=== PATIENT | male | born 1960 | race Caucasian/White ===

== ENCOUNTER 2017-06-01 07:15 | Inpatient (IN) | payer BC ==
[2017-06-01] MEDS ORDERED: Sodium Chloride 0.9% 2.5 ML Syringe FLUSH PRN (07:23)
[2017-06-01] MEDS ORDERED: Sodium Chloride 0.9% 10 ML Syringe FLUSH PRN (07:23)
--- NOTE | 2017-06-01 07:28 | EDM.PDOC ---
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 According to the patient he staying at a hotel alone and when he woke up this morning he felt generalized weakness no focal weakness. He Had a completely normal day yesterday without any systemic complaints of fever chills chest pain headache nausea vomiting. When he woke this morning he did not have a headache or any pain throughout his body but felt like he had this generalized weakness like he might pass out. He called the ambulance and when they arrived they tell us that he initially did not have a slight facial droop on the left and now it is more pronounced. The patient did not notice that prior to transfer here. Currently in the ED has no complaints of any pain but just feels weak but is not nauseated he doesn't have a headache chest pain palpitations shortness of breath nausea or any focal weakness. Review of systems: As per history of present illness and below otherwise all systems reviewed and negative. Past medical history: As per history of present illness and as reviewed below otherwise noncontributory. Surgical history: As per history of present illness and as reviewed below otherwise noncontributory. Social history: No reported history of drug or alcohol abuse. Family history: As per history of present illness and as reviewed below otherwise noncontributory. Physical exam: General: Well-developed well-nourished overweight man who is nontoxic and vital signs of the note by me. He moves easily in the ED without distress HEENT: Atraumatic, normocephalic, pupils reactive, negative for conjunctival pallor or scleral icterus, mucous membranes moist, throat clear, neck supple, nontender, trachea midline. EOMs intact, no cervical adenopathy or nuchal rigidity, there is a slight downward turn of his mouth on the left and loss of nasolabial fold on the left. Lungs: Clear to auscultation, breath sounds equal bilaterally, chest nontender. Heart: S1S2, regular rate and rhythm no overt murmurs Abdomen: Soft, nondistended, nontender. Negative for masses or hepatosplenomegaly. Negative for costovertebral tenderness. Pelvis: Stable nontender. Genitourinary: Deferred. Rectal: Deferred. Extremities: Atraumatic, negative for cords or calf pain. Neurovascular unremarkable. Full range of motion without defects or deficits Neuro: Awake, alert, oriented. Cranial nerves II through XII unremarkable. Cerebellum unremarkable. Motor and sensory unremarkable throughout. Exam nonfocal. 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 Patient's speech is slightly thickened and he has a downward turn of his smile on the left but is able to raise his eyebrows and puff out his cheeks. Skin: There is no diaphoresis, no evidence of any rashes or lesions, normal turgor Diagnostics: CT scan of the head EKG CBC CMP INR troponin TSH UA chest x-ray NIHSS [employer]: IV O2 monitor, aspirin if CT scan is negative NIHSS=2; patient states that he went to bed last evening at 10 PM and his symptoms were present when he woke of the generalized weakness lightheadedness. EMS as the facial droop started in route to the hospital as they state that they did not notice it on their arrival. Their call in to the ER or transfer occurred at approximately 655. When asked about the patient's TIA in the past he is unsure why that occurred he said it was right arm and right leg weakness not facial changes. He said it occurred in 2011. He has a defibrillator because he has an ejection fraction of only 10%. Currently his blood pressure from initial has stabilized to 150s systolic --- see nursing notes for blood pressure trends 0817: Case was discussed with our neurologist Dr. Alonzo who feels that the patient's symptoms started when he woke up and that his last had normal would' ve been when he went to bed at 10 PM. She agrees that with this timeframe and the stroke scale of 2 the TPA is not indicated. She agrees that the patient should be admitted for a workup and she will be available for consult if the hospitalist wants that. 0831: Dr. Valenzuela is aware of the case and accepts the patient for observation admission. He is aware that Dr. Alonzo is aware and if he would like a consult with her he could request that. Patient is also aware of the admission. Symptoms have not evolved developed or change since arrival. Impression: Generalized weakness without focality, left facial droop TIA versus CVA Definitive disposition and diagnosis as appropriate pending reevaluation and review of above. - Related Data Allergies Allergy/AdvReac Type Severity Reaction Status Date / Time No Known Allergies Allergy Verified 06/01/17 08:05 ED ROS GENERAL - Review of Systems Review Of Systems: ROS reveals no pertinent complaints other than HPI. ED EXAM, GENERAL - Physical Exam Exam: See Below (See dictation) Course - Vital Signs Last Recorded V/S: Last Vital Signs Temp 36.2 C 06/01/17 07:15 Pulse 73 06/01/17 07:15 Resp 18 06/01/17 07:15 BP 158/101 H 06/01/17 07:15 Pulse Ox 98 06/01/17 07:30 - Orders/Labs/Meds Orders: Active Orders 24 hr Category Date Time Status Blood Glucose Check, Bedside [RC] ONETIME Care 06/01/17 07:22 Active Cardiac Monitoring [RC] . DIRECTED Care 06/01/17 07:22 Active EKG Documentation Completion [RC] STAT Care 06/01/17 07:22 Active Oxygen Therapy, ED [RC] ASDIRECTED Care 06/01/17 07:22 Active Pulse Oximetry [RC] ASDIRECTED Care 06/01/17 07:22 Active Chest 1V Frontal [CR] Stat Exams 06/01/17 07:23 Taken Head wo Cont [CT] Stat Exams 06/01/17 07:22 Taken COMPREHENSIVE METABOLIC PN,CMP [CHEM] Stat Lab 06/01/17 07:39 Results TSH [CHEM] Stat Lab 06/01/17 07:39 Results UA W/MICROSCOPIC [URIN] Stat Lab 06/01/17 07:22 Uncollected Sodium Chloride 0.9% [Saline Flush] Med 06/01/17 07:23 Active 10 ml FLUSH ASDIRECTED PRN Sodium Chloride 0.9% [Saline Flush] Med 06/01/17 07:23 Active 2.5 ml FLUSH ASDIRECTED PRN Saline Lock Insert [OM.PC] Stat Oth 06/01/17 07:22 Ordered Medication Orders Sodium Chloride (Saline Flush) 10 ml FLUSH ASDIRECTED PRN PRN Reason: Keep Vein Open Sodium Chloride (Saline Flush) 2.5 ml FLUSH ASDIRECTED PRN PRN Reason: Keep Vein Open Labs: Laboratory Tests 06/01/17 06/01/17 06/01/17 Range/Units 07:39 07:39 07:39 WBC 8.51 (4.0-11.0) K/uL RBC 4.71 (4.50-5.90) M/uL Hgb 16.3 (13.0-17.0) g/dL Hct 46.5 (38.0-50.0) % MCV 98.7 H (80.0-98.0) fL MCH 34.6 H (27.0-32.0) pg MCHC 35.1 (31.0-37.0) g/dL RDW Std Deviation 46.0 (28.0-62.0) fl RDW Coeff of An 13 (11.0-15.0) % Plt Count 185 (150-400) K/uL MPV 11.00 (7.40-12.00) fL Neut % (Auto) 61.6 (48.0-80.0) % Lymph % (Auto) 27.7 (16.0-40.0) % [place] % (Auto) 8.1 (0.0-15.0) % Eos % (Auto) 2.4 (0.0-7.0) % Baso % (Auto) 0.2 (0.0-1.5) % Neut # (Auto) 5.2 (1.4-5.7) K/uL Lymph # (Auto) 2.4 (0.6-2.4) K/uL [place] # (Auto) 0.7 (0.0-0.8) K/uL Eos # (Auto) 0.2 (0.0-0.7) K/uL Baso # (Auto) 0.0 (0.0-0.1) K/uL Nucleated RBC % 0.0 /100WBC Nucleated RBCs # 0 K/uL INR 1.04 (0.86-1.11) Sodium 142 (136-146) mmol/L Potassium 3.9 (3.5-5.1) mmol/L Chloride 109 (98-110) mmol/L Carbon Dioxide 23 (21-31) mmol/L BUN 15 (6.0-23.0) mg/dL Creatinine 1.4 (0.6-1.5) mg/dL Est Cr Clr Drug Dosing 58.92 mL/min Estimated GFR (MDRD) 52.4 ml/min Glucose 138 H (60-110) mg/dL Calcium 9.2 (8.8-10.8) mg/dL Total Bilirubin 0.8 (0.1-1.5) mg/dL AST 36 (5-40) IU/L ALT 57 H (8-54) IU/L Alkaline Phosphatase 71 (40-150) Troponin I (0.0-0.29) NG/ML Total Protein 7.1 (6.0-8.0) g/dL Albumin 4.1 (3.5-5.0) g/dL Globulin 3.0 (2.0-3.5) g/dL Albumin/Globulin Ratio 1.4 (1.3-2.8) 06/01/17 Range/Units 07:39 WBC (4.0-11.0) K/uL RBC (4.50-5.90) M/uL Hgb (13.0-17.0) g/dL Hct (38.0-50.0) % MCV (80.0-98.0) fL MCH (27.0-32.0) pg MCHC (31.0-37.0) g/dL RDW Std Deviation (28.0-62.0) fl RDW Coeff of An (11.0-15.0) % Plt Count (150-400) K/uL MPV (7.40-12.00) fL Neut % (Auto) (48.0-80.0) % Lymph % (Auto) (16.0-40.0) % [place] % (Auto) (0.0-15.0) % Eos % (Auto) (0.0-7.0) % Baso % (Auto) (0.0-1.5) % Neut # (Auto) (1.4-5.7) K/uL Lymph # (Auto) (0.6-2.4) K/uL [place] # (Auto) (0.0-0.8) K/uL Eos # (Auto) (0.0-0.7) K/uL Baso # (Auto) (0.0-0.1) K/uL Nucleated RBC % /100WBC Nucleated RBCs # K/uL INR (0.86-1.11) Sodium (136-146) mmol/L Potassium (3.5-5.1) mmol/L Chloride (98-110) mmol/L Carbon Dioxide (21-31) mmol/L BUN (6.0-23.0) mg/dL Creatinine (0.6-1.5) mg/dL Est Cr Clr Drug Dosing mL/min Estimated GFR (MDRD) ml/min Glucose (60-110) mg/dL Calcium (8.8-10.8) mg/dL Total Bilirubin (0.1-1.5) mg/dL AST (5-40) IU/L ALT (8-54) IU/L Alkaline Phosphatase (40-150) Troponin I < 0.10 (0.0-0.29) NG/ML Total Protein (6.0-8.0) g/dL Albumin (3.5-5.0) g/dL Globulin (2.0-3.5) g/dL Albumin/Globulin Ratio (1.3-2.8) Meds: Medications Generic Name Dose Route Start Last Admin Trade Name Freq PRN Reason Stop Dose Admin Sodium Chloride 10 ml 06/01/17 07:23 Saline Flush FLUSH ASDIRECTED PRN Keep Vein Open Sodium Chloride 2.5 ml 06/01/17 07:23 Saline Flush FLUSH ASDIRECTED PRN Keep Vein Open Discontinued Medications Generic Name Dose Route Start Last Admin Trade Name Freq PRN Reason Stop Dose Admin Aspirin 325 mg 06/01/17 07:50 06/01/17 08:25 Aspirin PO 06/01/17 07:51 325 mg ONETIME ONE Administration Departure - Departure Time of Disposition: 08:34 Disposition: Refer to Observation Condition: Good Clinical Impression: Facial palsy TIA (transient ischemic attack) Qualifiers: Transient cerebral ischemia type: unspecified Qualified Code(s): G45.9 - Transient cerebral ischemic attack, unspecified - Discharge Information Referrals: PCP,None [Primary Care Provider] - - My Orders Last 24 Hours: My Active Orders 06/01/17 07:22 Blood Glucose Check, Bedside [RC] ONETIME Cardiac Monitoring [RC] . DIRECTED EKG Documentation Completion [RC] STAT Oxygen Therapy, ED [RC] ASDIRECTED Pulse Oximetry [RC] ASDIRECTED Head wo Cont [CT] Stat UA W/MICROSCOPIC [URIN] Stat Saline Lock Insert [OM.PC] Stat 06/01/17 07:23 Chest 1V Frontal [CR] Stat Sodium Chloride 0.9% [Saline Flush] 10 ml FLUSH ASDIRECTED PRN Sodium Chloride 0.9% [Saline Flush] 2.5 ml FLUSH ASDIRECTED PRN 06/01/17 07:39 COMPREHENSIVE METABOLIC PN,CMP [CHEM] Stat TSH [CHEM] Stat - Assessment/Plan Last 24 Hours: My Active Orders 06/01/17 07:22 Blood Glucose Check, Bedside [RC] ONETIME Cardiac Monitoring [RC] . DIRECTED EKG Documentation Completion [RC] STAT Oxygen Therapy, ED [RC] ASDIRECTED Pulse Oximetry [RC] ASDIRECTED Head wo Cont [CT] Stat UA W/MICROSCOPIC [URIN] Stat Saline Lock Insert [OM.PC] Stat 06/01/17 07:23 Chest 1V Frontal [CR] Stat Sodium Chloride 0.9% [Saline Flush] 10 ml FLUSH ASDIRECTED PRN Sodium Chloride 0.9% [Saline Flush] 2.5 ml FLUSH ASDIRECTED PRN 06/01/17 07:39 COMPREHENSIVE METABOLIC PN,CMP [CHEM] Stat TSH [CHEM] Stat
[2017-06-01] MEDS ORDERED: Aspirin 325 MG Tab PO ONE (07:50)
[2017-06-01] MEDS ORDERED: oxyCODONE 5 MG Tab PO PRN (09:21)
--- NOTE | 2017-06-01 09:28 | PCM.HP ---
H&P History of Present Illness - General Date of Service: 06/01/17 Admit Problem/Dx: Transient ischemic attack, left-sided facial droop and generalized weakness. Source of Information: Patient History Limitations: Reports: No Limitations - History of Present Illness Initial Comments - Free Text/Narative: The patient is a 56-year-old gentleman who is presented to the emergency department this morning secondary to slurring of speech as well as left-sided facial weakness and droop. The patient is from [place] and he normally follows up with a primary care physician there. 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 The patient says that his last cardiology appointment has shown that his ejection fraction has improved somewhat. The patient says that he does have a history of transient ischemic attacks. The patient denies any pain, any muscular weakness of his arms or legs, distortion of vision some or headache. Apparently last time the patient felt that his baseline was 10 p.m. the night before. Onset of Symptoms: Reports: Sudden Duration of Symptoms: Reports: Hour(s):, Constant Severity: Moderate Improves with: Reports: None Worsens with: Reports: None Associated Symptoms: Reports: No Other Symptoms - Related Data Allergies/Adverse Reactions: Allergies Allergy/AdvReac Type Severity Reaction Status Date / Time No Known Allergies Allergy Verified 06/01/17 08:05 Home Medications: Home Meds Amiodarone HCl [Pacerone] 200 mg PO DAILY 06/01/17 [History] Aspirin [Ecotrin] 81 mg PO DAILY 06/01/17 [History] Carvedilol [Coreg] 25 mg PO BID 06/01/17 [History] Levothyroxine [Synthroid] 50 mcg PO DAILY 06/01/17 [History] Omeprazole 20 mg PO DAILY 06/01/17 [History] Simvastatin [Zocor] 40 mg PO DAILY 06/01/17 [History] Past Medical History HEENT History: Reports: None Cardiovascular History: Reports: Cardiomyopathy, Hypertension, Pacemaker, Stents , Other (See Below) Other Cardiovascular History: Defibrilator. CHF Respiratory History: Reports: Sleep Apnea Gastrointestinal History: Reports: None Genitourinary History: Reports: None Musculoskeletal History: Reports: None Neurological History: Reports: TIA Psychiatric History: Reports: None Endocrine/Metabolic History: Reports: Hypothyroidism Hematologic History: Reports: None Immunologic History: Reports: None Oncologic (Cancer) History: Reports: None Dermatologic History: Reports: None - Infectious Disease History Infectious Disease History: Reports: Chicken Pox - Past Surgical History Cardiovascular Surgical History: Reports: Coronary Artery Bypass Social & Family History - Family History Family Medical History: Noncontributory - Tobacco Use Smoking Status *Q: Never Smoker - Caffeine Use Caffeine Use: Reports: Coffee - Alcohol Use Alcohol Use History: No - Recreational Drug Use Recreational Drug Use: No H&P Review of Systems - Review of Systems: Review Of Systems: See Below General: Reports: Weakness HEENT: Reports: No Symptoms Pulmonary: Reports: No Symptoms Cardiovascular: Reports: No Symptoms Gastrointestinal: Reports: No Symptoms Genitourinary: Reports: No Symptoms Musculoskeletal: Reports: No Symptoms Skin: Reports: No Symptoms Psychiatric: Reports: No Symptoms Neurological: Reports: Trouble Speaking, Other (Facial droop, left side) Hematologic/Lymphatic: Reports: No Symptoms Immunologic: Reports: No Symptoms Exam - Exam Exam: See Below - Vital Signs Vital Signs: Last Vital Signs Temp 36.2 C 06/01/17 07:15 Pulse 73 06/01/17 07:15 Resp 18 06/01/17 07:15 BP 158/101 H 06/01/17 07:15 Pulse Ox 98 06/01/17 07:30 Weight: 105.1 kg - Exam Quality Assessment: No: Supplemental Oxygen General: Alert, Oriented, Cooperative HEENT: Conjunctiva Clear, EACs Clear, Mucosa Moist & [place], Nares Patent Neck: Supple, Trachea Midline Lungs: Clear to Auscultation, Normal Respiratory Effort Cardiovascular: Regular Rate, Regular Rhythm GI/Abdominal Exam: Normal Bowel Sounds, Soft, No Distention (Male) Exam: Deferred Rectal (Males) Exam: Deferred Back Exam: Normal Inspection Extremities: Normal Inspection, No Pedal Edema Skin: Warm, Dry, Intact Neurological: Cranial Nerves Intact, Strength Equal Bilateral, Sensation Intact , Focal Deficit (Left-sided facial droop) Neuro Extensive - Mental Status: Alert, Oriented x3 Neuro Extensive - Motor, Sensory, Reflexes: CN II-XII Intact. No: Tongue Deviation (L), Tongue Deviation (R) Psychiatric: Alert, Normal Affect, Normal Mood - Patient Data Lab Results Last 24 hrs: Laboratory Results - last 24 hr 09/14/17 Range/Units 08:50 Urine Color YELLOW Urine Appearance CLEAR Urine pH 6.0 (5.0-8.0) Ur Specific [place] 1.015 (1.001-1.035) Urine Protein TRACE (NEGATIVE) mg/dL Urine Glucose (UA) NEGATIVE (NEGATIVE) mg/dL Urine Ketones NEGATIVE (NEGATIVE) mg/dL Urine Occult Blood TRACE-LYSED (NEGATIVE) Urine Nitrite NEGATIVE (NEGATIVE) Urine Bilirubin NEGATIVE (NEGATIVE) Urine Urobilinogen 1.0 (<2.0) EU/dL Ur Leukocyte Esterase NEGATIVE (NEGATIVE) Urine RBC 0-2 (0-2/HPF) Urine WBC 0-1 (0-5/HPF) Ur Epithelial Cells OCCASIONAL (NONE-FEW) Urine Bacteria RARE (NEGATIVE) Urine Mucus LIGHT (NONE-MOD) Result Diagrams: 06/01/17 07:39 06/01/17 07:39 *Q Meaningful Use (ADM) - VTE *Q VTE Criteria *Q: - Stroke *Q Stroke Criteria *Q: - AMI *Q AMI Criteria *Q: - Problem List (1) TIA (transient ischemic attack) SNOMED Code(s): 997043648, 377490030 ICD Code: G45.9 - TRANSIENT CEREBRAL ISCHEMIC ATTACK, UNSPECIFIED Status: Acute Current Visit: Yes Qualifiers: Transient cerebral ischemia type: unspecified Qualified Code(s): G45.9 - Transient cerebral ischemic attack, unspecified (2) Cardiac defibrillator in place Status: Chronic Priority: Medium Current Visit: Yes (3) Cardiomyopathy SNOMED Code(s): 62364618 ICD Code: I42.9 - CARDIOMYOPATHY, UNSPECIFIED Status: Chronic Priority: Medium Current Visit: Yes Qualifiers: Cardiomyopathy type: unspecified Qualified Code(s): I42.9 - Cardiomyopathy , unspecified (4) Hypertension SNOMED Code(s): 37494659 ICD Code: I10 - ESSENTIAL (PRIMARY) HYPERTENSION Status: Chronic Priority : High Current Visit: Yes (5) Facial palsy SNOMED Code(s): 956652623 ICD Code: G51.0 - LAINEZ'S PALSY Status: Acute Priority: High Current Visit: Yes Problem List Initiated/Reviewed/Updated: Yes Orders Last 24hrs: Active Orders 24 hr Category Date Time Status Patient Status [ADT] Routine ADT 06/01/17 09:21 Ordered Ambulate [RC] PER UNIT ROUTINE Care 06/01/17 09:23 Ordered Cardiac Monitoring [RC] CONTINUOUS Care 06/01/17 09:23 Ordered Notify Provider Consults [RC] ASDIRECTED Care 06/01/17 09:25 Ordered Oxygen Therapy [RC] PRN Care 06/01/17 09:21 Ordered VTE/DVT Education [RC] PER UNIT ROUTINE Care 06/01/17 09:21 Ordered Vital Signs [RC] Q4H Care 06/01/17 09:21 Ordered Consult to Physician [CONS] Routine Cons 06/01/17 09:21 Ordered 2 Gram Sodium Diet [DIET] Diet 06/01/17 Lunch Ordered Acetaminophen [Tylenol] Med 06/01/17 09:21 Ordered 650 mg PO Q4H PRN Amiodarone [Cordarone] Med 06/02/17 09:00 Ordered 200 mg PO DAILY Aspirin [Halfprin] Med 06/02/17 09:00 Ordered 81 mg PO DAILY Carvedilol [Coreg] Med 06/01/17 21:00 Ordered 25 mg PO BID Levothyroxine [Synthroid] Med 06/02/17 09:00 Ordered 50 mcg PO DAILY Omeprazole Med 06/02/17 09:00 Ordered 20 mg PO DAILY Simvastatin [Zocor] Med 06/02/17 09:00 Ordered 40 mg PO DAILY oxyCODONE Med 06/01/17 09:21 Ordered 5 mg PO Q4H PRN Resuscitation Status Routine Resus Stat 06/01/17 09:21 Ordered Medication Orders Acetaminophen (Tylenol) 650 mg PO Q4H PRN PRN Reason: Pain (Mild 1-3)/fever Amiodarone HCl (Cordarone) 200 mg PO DAILY RUBEN Aspirin (Halfprin) 81 mg PO DAILY RUBEN Carvedilol (Coreg) 25 mg PO BID RUBEN Levothyroxine Sodium (Synthroid) 50 mcg PO DAILY RUBEN Omeprazole (Omeprazole) 20 mg PO DAILY RUBEN Oxycodone HCl (Oxycodone) 5 mg PO Q4H PRN PRN Reason: Pain (moderate 4-6) Simvastatin (Zocor) 40 mg PO DAILY RUBEN Sodium Chloride (Saline Flush) 10 ml FLUSH ASDIRECTED PRN PRN Reason: Keep Vein Open Sodium Chloride (Saline Flush) 2.5 ml FLUSH ASDIRECTED PRN PRN Reason: Keep Vein Open Assessment/Plan Comment:: The patient is a 56-year-old gentleman who will be admitted to observation and consult with neurology. I've also ordered that the patient be kept on telemetry and have neuro checks every 2 hours. The concern is the patient does have a significant left-sided facial droop and this may be likely related to a TIA or possibly an acute CVA. Likely the patient will need to have an MRI/MRA of his brain and I will discuss about this with the neurologist. A 2-D echocardiogram will be ordered secondary to the patient's cardiomyopathy to help rule out mural thrombi. This may be likely in a patient with cardiomyopathy. It's uncertain if the patient has atrial fibrillation as an atrial kick could cause the patient to have clot disruption and further strokes. The patient is currently not on any anticoagulant. The patient will also have repeat comprehensive metabolic panel along with CBC and lipid profile. The patient will be followed very closely and his treatment plan will be adjusted accordingly.
--- NOTE | 2017-06-01 10:37 | CT ---
EXAM DATE: 06/01/17 PATIENT'S AGE: 56 Patient: ZULMA HARDAGE Facility: [place], [place] Site . Site : 1960 Study: CT Head STROKE PROTOCOL [id number]/14/2017 7:36:13 AM Ordering Physician: Doctor Pollock Final Report: INDICATION: Stroke Symptoms INDICATION: Stroke like symptoms. TECHNIQUE: CT head without contrast. COMPARISON: None FINDINGS: CSF spaces: Within normal limits for age. Brain parenchyma: The guzman-white differentiation is normal. No sign of mass, hemorrhage, or midline shift. Skull base and calvarium: The visualized paranasal sinuses and mastoid air cells are clear. The visualized orbits are grossly unremarkable. No skull fractures. IMPRESSION: 1. There is no acute intracranial hemorrhage, shift of midline structures, or mass effect. 2. No hyperdense MCA sign. 3. Report called to Dr. Gonzalez, Emergency Department, 06/01/17, 0750 hours. Dictated by Asif Gupta MD @ 06/01/2017 7:51:17 AM Dictated by: Asif Gupta MD @ 06/01/2017 07:51:36 (Electronic Signature) Report Signed by Proxy. [facility] HOSPITALDevorah
--- NOTE | 2017-06-01 10:38 | CR ---
EXAM DATE: 06/01/17 PATIENT'S AGE: 56 Patient: WC HARDAGE Facility: [place], [place] Site . Site : 1960 Study: XRay Chest [id number]/14/2017 7:51:16 AM Ordering Physician: Lisa Loya Final Report: INDICATION: Pain/shortness of breath. Stroke code HISTORY: Stroke-like symptoms. COMPARISON: None. TECHNIQUE: Chest one-view portable. FINDINGS: Median sternotomy changes. Left subclavian transvenous AICD. Lungs are clear. No pneumothorax. Central airway is normal. Heart size is enlarged, but may be exaggerated by portable technique. IMPRESSION: Lungs are clear. Dictated by Asif Gupta MD @ 06/01/2017 8:03:16 AM Dictated by: Asif Gupta MD @ 06/01/2017 08:03:25 (Electronic Signature) Report S[facility] Proxy. [facility]
--- NOTE | 2017-06-01 12:24 | PCM.CONS ---
H&P History of Present Illness - General Date of Service: 06/01/17 - History of Present Illness Initial Comments - Free Text/Narative: This is a 56-year-old man with a history of TIA and congestive heart failure presenting with weakness, left facial droop. He lives in [place] and is in the area for 2 weeks for work. When he woke up this morning, he couldnt get his CPAP back on. He felt like something wasnt right, tingling all over, weakness. He called 911. In route to the emergency department, he became aware facial droop. He was last normal when he went to bed last night at 10 PM. He had a TIA in 2011 that was characterized by right foot numbness and right arm clumsiness. Symptoms lasted less than an hour. During evaluation for this TIA in the hospital, it was discovered that he had heart failure. He recalls ejection fraction being 10%. He notes that most recent ejection fraction was 20% . He does have a defibrillator. He is on aspirin. He has not been on anticoagulation. He has a great uncle with stroke. No tobacco use - Related Data Allergies/Adverse Reactions: Allergies Allergy/AdvReac Type Severity Reaction Status Date / Time No Known Allergies Allergy Verified 06/01/17 08:05 Home Medications: Home Meds Amiodarone HCl [Pacerone] 200 mg PO DAILY 06/01/17 [History] Aspirin [Ecotrin] 81 mg PO DAILY 06/01/17 [History] Carvedilol [Coreg] 25 mg PO BID 06/01/17 [History] Levothyroxine [Synthroid] 50 mcg PO DAILY 06/01/17 [History] Omeprazole 20 mg PO DAILY 06/01/17 [History] Simvastatin [Zocor] 40 mg PO DAILY 06/01/17 [History] Past Medical History Cardiovascular History: Reports: Hypertension, Pacemaker, Stents, Other (See Below) Other Cardiovascular History: Defibrilator. CHF Respiratory History: Reports: Sleep Apnea - Infectious Disease History Infectious Disease History: Reports: Chicken Pox - Past Surgical History Cardiovascular Surgical History: Reports: Coronary Artery Bypass Social & Family History - Family History Family Medical History: Noncontributory - Tobacco Use Smoking Status *Q: Never Smoker Second Hand Smoke Exposure: No - Caffeine Use Caffeine Use: Reports: Coffee - Recreational Drug Use Recreational Drug Use: No H&P Review of Systems - Review of Systems: Review Of Systems: ROS reveals no pertinent complaints other than HPI. Exam - Exam Exam: See Below - Vital Signs Vital Signs: Last Vital Signs Temp 36.4 C 06/01/17 10:12 Pulse 75 06/01/17 10:12 Resp 16 06/01/17 10:12 BP 149/86 H 06/01/17 10:12 Pulse Ox 97 06/01/17 10:12 Weight: 102.058 kg - Exam Physical Exam Comments:: Constitutional: No acute distress Psychiatric: Mood/Affect: normal/appropriate Neurological: Mental Status: General: Normal activity, good hygiene, appropriate appearance. Level of consciousness: Awake, alert. Concentration/Attention Span: Normal. Comprehension/Praxis: Able to perform a three step command. Fund of Knowledge/memory: Adequate recent and remote recall. Language: Fluent and articulate without evidence of aphasia. Naming and repetition are intact Thought Content: Normal. Insight/Judgement: Normal. Cranial Nerves: Pupils equally round and reactive to light. Visual messina notable for left quadrantanopsia. Gaze conjugate, EOMI. Sensation intact and symmetric to light touch. Moderate left lower facial weakness. Palate elevates symmetrically. Normal shrug bilaterally. Tongue protrudes midline Motor: Normal tone in all groups. Left pronator drift. Power is 5/5 throughout proximal and distal muscles. Sensation: Sensation is intact to temp, vibratory sense Deep tendon reflexes: Normoactive throughout except knee jerks are absent. Plantar responses are flexor bilaterally. Coordination: Finger to nose, heel to martinez and rapid alternating movements are intact. Gait: Not assessed Eyes: non icteric, Mouth: moist mucus membranes Cardiovascular: RRR Respiratory: clear lungs GI: non tender Musculoskeletal: non tender Skin: no visible rash - Patient Data Lab Results Last 24 hrs: Laboratory Results - last 24 hr 06/01/17 Range/Units 08:50 Urine Color YELLOW Urine Appearance CLEAR Urine pH 6.0 (5.0-8.0) Ur Specific [place] 1.015 (1.001-1.035) Urine Protein TRACE (NEGATIVE) mg/dL Urine Glucose (UA) NEGATIVE (NEGATIVE) mg/dL Urine Ketones NEGATIVE (NEGATIVE) mg/dL Urine Occult Blood TRACE-LYSED (NEGATIVE) Urine Nitrite NEGATIVE (NEGATIVE) Urine Bilirubin NEGATIVE (NEGATIVE) Urine Urobilinogen 1.0 (<2.0) EU/dL Ur Leukocyte Esterase NEGATIVE (NEGATIVE) Urine RBC 0-2 (0-2/HPF) Urine WBC 0-1 (0-5/HPF) Ur Epithelial Cells OCCASIONAL (NONE-FEW) Urine Bacteria RARE (NEGATIVE) Urine Mucus LIGHT (NONE-MOD) Result Diagrams: 06/01/17 07:39 06/01/17 07:39 Imaging Impressions Last 24 hrs: CT head showed no hemorrhage Consult PN Assessment/Plan (1) Stroke SNOMED Code(s): 784167963 Code(s): I63.9 - CEREBRAL INFARCTION, UNSPECIFIED Current Visit: Yes Assessment:: This is a 56-year-old man with a history of TIA, congestive heart failure presenting with vague complaints of weakness and paresthesias now with left facial droop and left pronator drift consistent with TIA/stroke. I also believe he has a left superior quadrantopsia. Last normal when he went to bed at 10 PM last night, so he is not a good TPA candidate. Recommendations -Continue aspirin 81 mg daily -Continue simvastatin 40 mg daily -Echocardiogram to evaluate for embolic source. Given his history of congestive heart failure, he is at high risk for embolism. -Repeat CT head and CT angiogram of the head and neck tomorrow. MRI is contraindicated due to defibrillator, but repeat CT tomorrow may demonstrate evolution of stroke. Imaging characteristics of the stroke may be helpful to determine if there is multiple vascular territories involved/suggestion of embolic source. -Remote telemetry to evaluate for atrial fibrillation -Nothing by mouth pending swallow evaluation -PT/OT/speech consults -Check lipids and A1c in a.m. -In his case, I would strongly consider thirty-day monitor if inpatient monitoring fails to demonstrate atrial fibrillation. He lives in [place], so this may need to be arranged there. Problem List Initiated/Reviewed/Updated: Yes
[2017-06-01] MEDS: Insulin Aspart 100 Units/ML 3 ML Pen SUBCUT SCH ×2 (17:41→21:50)
[2017-06-01] MEDS: Carvedilol 25 MG Tab PO SCH (21:37)
[2017-06-02] MEDS: Insulin Aspart 100 Units/ML 3 ML Pen SUBCUT SCH ×4 (08:21→21:19)
[2017-06-02] MEDS: Levothyroxine 50 MCG Tab PO SCH (10:10)
[2017-06-02] MEDS: Carvedilol 25 MG Tab PO SCH ×2 (10:10→21:25)
[2017-06-02] MEDS: Aspirin 81 MG Tab.EC PO SCH (10:11)
[2017-06-02] MEDS: Simvastatin 40 MG Tab PO SCH (10:11)
[2017-06-02] MEDS: Omeprazole 20 MG Cap.CR PO SCH (10:11)
[2017-06-02] MEDS: Amiodarone 200 MG Tab PO SCH (10:11)
[2017-06-02] MEDS: Acetaminophen 325 MG Tab PO PRN ×2 (11:25→21:30)
[2017-06-02] MEDS ORDERED: Iopamidol 755 MG/ML 500 ML Multipack Bottle IVPUSH STA (12:00)
--- NOTE | 2017-06-02 13:25 | CT ---
EXAMINATION: CTA head and neck HISTORY: TIA COMPARISON: None TECHNIQUE: Axial CT images obtained through the head and neck following the administration of 85 mL o f Isovue-370 in the right antecubital fossa. Coronal and sagittal reconstructions obtained. FINDINGS: Neck: There is a normal three-vessel origin on the aortic arch. The common carotid arteries appear normal. The left vertebral artery is mildly dominant. Mild atheromatous changes noted at the bulbs bilaterally, left greater than right. There is minimal stenosis of the left internal carotid ar ivon at the origin. Otherwise the internal carotid arteries are grossly patent. The distal internal carotid arteries are normal. The basilar artery is supplied predominantly by the left vertebral artery. The posterior cerebral, middle cerebral, and anterior cerebral arteries appear normal. The anterior and posterior communicating arteries are normal. No aneurysm or strictures iden tified. The visualized paranasal sinuses and mastoid air cells are clear. The orbits and globes appear symmet cheryle. No bulky cervical lymphadenopathy. The parotid and submandibular glands appear normal. The lung apices are clear. IMPRESSION: 1. Mild atheromatous changes noted within the bulbs and proximal left internal carotid artery without significant stenosis. 2. Otherwise normal anterior and extracranial arterial circulation.
--- NOTE | 2017-06-02 14:24 | PCM.PN ---
- General Info Date of Service: 06/02/17 - Review of Systems Systems Review Comment:: no trouble with swallowing. He refuses blood transfusion ( He is a [employer]). - Patient Data Vitals - Most Recent: Last Vital Signs Temp 98.4 F 06/02/17 11:37 Pulse 74 06/02/17 11:37 Resp 18 06/02/17 11:37 BP 147/78 H 06/02/17 11:37 Pulse Ox 98 06/02/17 04:00 Weight - Most Recent: 105.1 kg I&O - Last 24 Hours: Intake & Output 06/01/17 06/02/17 06/02/17 22:59 06:59 14:59 Intake Total 200 650 Output Total 0 650 Balance 200 0 Lab Results Last 24 Hours: Laboratory Results - last 24 hr 06/01/17 06/01/17 06/02/17 Range/Units 17:34 21:40 04:42 POC Glucose 110 96 (60-110) mg/dL Triglycerides 174 (10-190) mg/dL Cholesterol 167 (131-240) mg/dL LDL Cholesterol, Calc 101 (60-180) mg/dL VLDL Cholesterol 35 (5-55) mg/dL HDL Cholesterol 31 L (40-80) mg/dL Cholesterol/HDL Ratio 5.4 (3.3-6.0) 06/02/17 06/02/17 Range/Units 06:40 11:50 POC Glucose 94 107 (60-110) mg/dL Triglycerides (10-190) mg/dL Cholesterol (131-240) mg/dL LDL Cholesterol, Calc (60-180) mg/dL VLDL Cholesterol (5-55) mg/dL HDL Cholesterol (40-80) mg/dL Cholesterol/HDL Ratio (3.3-6.0) Med Orders - Current: Current Medications Acetaminophen (Tylenol) 650 mg PO Q4H PRN PRN Reason: Pain (Mild 1-3)/fever Last Admin: 06/02/17 11:25 Dose: 650 mg Amiodarone HCl (Cordarone) 200 mg PO DAILY [facility] Last Admin: 06/02/17 10:11 Dose: 200 mg Aspirin (Halfprin) 81 mg PO DAILY [facility] Last Admin: 06/02/17 10:11 Dose: 81 mg Carvedilol (Coreg) 25 mg PO BID [facility] Last Admin: 06/02/17 10:10 Dose: 25 mg Insulin Aspart (Novolog) 0 unit SUBCUT QIDACANDBED [facility] PRN Reason: Protocol Last Admin: 06/02/17 11:52 Dose: Not Given Levothyroxine Sodium (Synthroid) 50 mcg PO DAILY@0730 [facility] Last Admin: 06/02/17 10:10 Dose: 50 mcg Omeprazole (Omeprazole) 20 mg PO DAILY [facility] Last Admin: 06/02/17 10:11 Dose: 20 mg Oxycodone HCl (Oxycodone) 5 mg PO Q4H PRN PRN Reason: Pain (moderate 4-6) Simvastatin (Zocor) 40 mg PO DAILY [facility] Last Admin: 06/02/17 10:11 Dose: 40 mg Sodium Chloride (Saline Flush) 10 ml FLUSH ASDIRECTED PRN PRN Reason: Keep Vein Open Sodium Chloride (Saline Flush) 2.5 ml FLUSH ASDIRECTED PRN PRN Reason: Keep Vein Open Discontinued Medications Aspirin (Aspirin) 325 mg PO ONETIME ONE Stop: 06/01/17 07:51 Last Admin: 06/01/17 08:25 Dose: 325 mg Iopamidol (Isovue Multipack-370 (76%)) 85 ml IVPUSH ONETIME STA Stop: 06/02/17 12:01 Last Admin: 06/02/17 12:00 Dose: 85 ml - Exam Lungs: Clear to Auscultation, Normal Respiratory Effort Cardiovascular: Regular Rate, Regular Rhythm GI/Abdominal Exam: Soft, Non-Tender Physical Findings Comments:: normal gait slight left facial droop normal speech normal EOM's normal visual messina to confrontation testing able to close eyes normally He reports trouble coordinating the finger function for texting no detectable motor asymmetry no tremor - Problem List & Annotations (1) History of atrial fibrillation SNOMED Code(s): 473964947 Code(s): Z86.79 - PERSONAL HISTORY OF OTHER DISEASES OF THE CIRCULATORY SYSTEM Status: Acute Current Visit: Yes (2) Stroke SNOMED Code(s): 250810738 Code(s): I63.9 - CEREBRAL INFARCTION, UNSPECIFIED Status: Acute Current Visit: Yes (3) Cardiomyopathy SNOMED Code(s): 16588241 Code(s): I42.9 - CARDIOMYOPATHY, UNSPECIFIED Status: Chronic Priority: Medium Current Visit: Yes Qualifiers: Cardiomyopathy type: unspecified Qualified Code(s): I42.9 - Cardiomyopathy , unspecified - Problem List Review Problem List Initiated/Reviewed/Updated: Yes - Plan Plan:: The patient is a 56-year-old gentleman who will be admitted to observation and consult with neurology. I've also ordered that the patient be kept on telemetry and have neuro checks every 2 hours. The concern is the patient does have a significant left-sided facial droop and this may be likely related to a TIA or possibly an acute CVA. Likely the patient will need to have an MRI/MRA of his brain and I will discuss about this with the neurologist. A 2-D echocardiogram will be ordered secondary to the patient's cardiomyopathy to help rule out mural thrombi. This may be likely in a patient with cardiomyopathy. It's uncertain if the patient has atrial fibrillation as an atrial kick could cause the patient to have clot disruption and further strokes. The patient is currently not on any anticoagulant. The patient will also have repeat comprehensive metabolic panel along with CBC and lipid profile. The patient will be followed very closely and his treatment plan will be adjusted accordingly. 06/02/2017 He reports that his last LVEF was 20% but he has not been on warfarin because of his refusal to accept blood transfusion should bleeding occur. he desires to go home to [place]. possible discharge Monday or Monday directly to the airport to fly home to [place]. continue monitoring until then. Peña Brizuela MD
[2017-06-03] MEDS: Insulin Aspart 100 Units/ML 3 ML Pen SUBCUT SCH ×4 (06:56→21:09)
[2017-06-03] MEDS: Levothyroxine 50 MCG Tab PO SCH (06:57)
[2017-06-03] MEDS: Omeprazole 20 MG Cap.CR PO SCH (09:27)
[2017-06-03] MEDS: Aspirin 81 MG Tab.EC PO SCH (09:27)
[2017-06-03] MEDS: Amiodarone 200 MG Tab PO SCH (09:28)
[2017-06-03] MEDS: Carvedilol 25 MG Tab PO SCH ×2 (09:28→20:56)
[2017-06-03] MEDS: Simvastatin 40 MG Tab PO SCH (09:30)
--- NOTE | 2017-06-03 17:52 | PCM.PN ---
- General Info Date of Service: 06/03/17 Subjective Update: generally feeling better. He thinks that his speech is better. He has ambulated without difficulty. - Patient Data Vitals - Most Recent: Last Vital Signs Temp 99.5 F 06/03/17 16:00 Pulse 75 06/03/17 16:00 Resp 18 06/03/17 16:00 BP 144/86 H 06/03/17 16:00 Pulse Ox 94 L 06/03/17 16:00 Weight - Most Recent: 105.1 kg I&O - Last 24 Hours: Intake & Output 06/03/17 06/03/17 06/03/17 06:59 14:59 22:59 Intake Total 440 720 Output Total 500 Balance 440 220 Lab Results Last 24 Hours: Laboratory Results - last 24 hr 06/02/17 06/02/17 06/03/17 Range/Units 16:44 21:15 06:35 POC Glucose 94 86 97 (60-110) mg/dL 06/03/17 Range/Units 11:36 POC Glucose 93 (60-110) mg/dL Med Orders - Current: Current Medications Acetaminophen (Tylenol) 650 mg PO Q4H PRN PRN Reason: Pain (Mild 1-3)/fever Last Admin: 06/02/17 21:30 Dose: 650 mg Amiodarone HCl (Cordarone) 200 mg PO DAILY [facility] Last Admin: 06/03/17 09:28 Dose: 200 mg Aspirin (Halfprin) 81 mg PO DAILY [facility] Last Admin: 06/03/17 09:27 Dose: 81 mg Carvedilol (Coreg) 25 mg PO BID [facility] Last Admin: 06/03/17 09:28 Dose: 25 mg Insulin Aspart (Novolog) 0 unit SUBCUT QIDACANDBED [facility] PRN Reason: Protocol Last Admin: 06/03/17 12:40 Dose: Not Given Levothyroxine Sodium (Synthroid) 50 mcg PO DAILY@0730 [facility] Last Admin: 06/03/17 06:57 Dose: 50 mcg Omeprazole (Omeprazole) 20 mg PO DAILY [facility] Last Admin: 06/03/17 09:27 Dose: 20 mg Oxycodone HCl (Oxycodone) 5 mg PO Q4H PRN PRN Reason: Pain (moderate 4-6) Simvastatin (Zocor) 40 mg PO DAILY [facility] Last Admin: 06/03/17 09:30 Dose: 40 mg Sodium Chloride (Saline Flush) 10 ml FLUSH ASDIRECTED PRN PRN Reason: Keep Vein Open Sodium Chloride (Saline Flush) 2.5 ml FLUSH ASDIRECTED PRN PRN Reason: Keep Vein Open Discontinued Medications Aspirin (Aspirin) 325 mg PO ONETIME ONE Stop: 06/01/17 07:51 Last Admin: 06/01/17 08:25 Dose: 325 mg Iopamidol (Isovue Multipack-370 (76%)) 85 ml IVPUSH ONETIME STA Stop: 06/02/17 12:01 Last Admin: 06/02/17 12:00 Dose: 85 ml - Exam General: Alert, Oriented Neck: Trachea Midline Lungs: Clear to Auscultation, Normal Respiratory Effort, Crackles Cardiovascular: Regular Rate, Regular Rhythm Neurological: Normal Speech, Other (no facial droop. ) Psy/Mental Status: Alert, Normal Affect. No: Depressed, Agitated - Problem List & Annotations (1) History of atrial fibrillation SNOMED Code(s): 135186392 Code(s): Z86.79 - PERSONAL HISTORY OF OTHER DISEASES OF THE CIRCULATORY SYSTEM Status: Acute Current Visit: Yes (2) Stroke SNOMED Code(s): 714709377 Code(s): I63.9 - CEREBRAL INFARCTION, UNSPECIFIED Status: Acute Current Visit: Yes (3) Cardiomyopathy SNOMED Code(s): 70878835 Code(s): I42.9 - CARDIOMYOPATHY, UNSPECIFIED Status: Chronic Priority: Medium Current Visit: Yes Qualifiers: Cardiomyopathy type: unspecified Qualified Code(s): I42.9 - Cardiomyopathy , unspecified - Problem List Review Problem List Initiated/Reviewed/Updated: Yes - My Orders Last 24 Hours: My Active Orders 06/04/17 05:11 CBC WITH AUTO DIFF [HEME] AM COMPREHENSIVE METABOLIC PN,CMP [CHEM] AM - Plan Plan:: The patient is a 56-year-old gentleman who will be admitted to observation and consult with neurology. I've also ordered that the patient be kept on telemetry and have neuro checks every 2 hours. The concern is the patient does have a significant left-sided facial droop and this may be likely related to a TIA or possibly an acute CVA. Likely the patient will need to have an MRI/MRA of his brain and I will discuss about this with the neurologist. A 2-D echocardiogram will be ordered secondary to the patient's cardiomyopathy to help rule out mural thrombi. This may be likely in a patient with cardiomyopathy. It's uncertain if the patient has atrial fibrillation as an atrial kick could cause the patient to have clot disruption and further strokes. The patient is currently not on any anticoagulant. The patient will also have repeat comprehensive metabolic panel along with CBC and lipid profile. The patient will be followed very closely and his treatment plan will be adjusted accordingly. 06/02/2017 He reports that his last LVEF was 20% but he has not been on warfarin because of his refusal to accept blood transfusion should bleeding occur. he desires to go home to [place]. possible discharge Monday or Monday directly to the airport to fly home to [place]. continue monitoring until then. Peña Brizuela MD 06/03/17 CTA head and neck as per reports his sister will arrive this evening to fly back home to [place] with him possible discharge tomorrow pm echo results pending Peña Brizuela MD
[2017-06-04] MEDS: Insulin Aspart 100 Units/ML 3 ML Pen SUBCUT SCH ×3 (06:46→18:57)
[2017-06-04] MEDS: Levothyroxine 50 MCG Tab PO SCH (06:47)
[2017-06-04 07:05] LABS: CHLORIDE,CL 106 mmol/L (98-110); SODIUM,NA 138 mmol/L (136-146)
[2017-06-04] MEDS: Amiodarone 200 MG Tab PO SCH (09:02)
[2017-06-04] MEDS: Aspirin 81 MG Tab.EC PO SCH (09:02)
[2017-06-04] MEDS: Omeprazole 20 MG Cap.CR PO SCH (09:02)
[2017-06-04] MEDS: Carvedilol 25 MG Tab PO SCH (09:03)
[2017-06-04] MEDS: Simvastatin 40 MG Tab PO SCH (09:03)
--- NOTE | 2017-06-04 16:32 | PCM.DCSUM1 ---
Discharge Summary - Hospital Course Brief History: He was admitted for suspected stroke with left facial droop and slurred speech. - Discharge Data Discharge Date: 06/04/17 Discharge Disposition: Home, Self-Care 01 Condition: Fair - Discharge Diagnosis/Problem(s) (1) History of atrial fibrillation SNOMED Code(s): 163868982 ICD Code: Z86.79 - PERSONAL HISTORY OF OTHER DISEASES OF THE CIRCULATORY SYSTEM Status: Acute Current Visit: Yes (2) Stroke SNOMED Code(s): 484266641 ICD Code: I63.9 - CEREBRAL INFARCTION, UNSPECIFIED Status: Acute Current Visit: Yes (3) Cardiomyopathy SNOMED Code(s): 70772918 ICD Code: I42.9 - CARDIOMYOPATHY, UNSPECIFIED Status: Chronic Priority: Medium Current Visit: Yes Qualifiers: Cardiomyopathy type: unspecified Qualified Code(s): I42.9 - Cardiomyopathy , unspecified - Patient Summary/Data Hospital Course: He was monitored. He was noted to have a history of CHF and atrial fibrillation. He was not started on anticoagulation ( except aspirin) because of his latter day beliefs that will not allow blood transfusion in case of significant bleeding. MRI was not done as he has a defibrillator in place. CTA showed atheromatous arterial disease not hemodynamically significant. Imaging did not show any stroke . within 48 hours of admission, he had what seemed to be complete resolution of his facial droop and slurred speech. IMpression: acute ischemic stroke history of atrial fibrillation history of chf discharge He will be flying home to [place] on Monday and will discuss the propriety of anticoagulation with his doctor there. Peña Brizuela MD - Discharge Plan Home Medications: Home Meds Amiodarone HCl [Pacerone] 200 mg PO DAILY 06/01/17 [History] Aspirin [Ecotrin] 81 mg PO DAILY 06/01/17 [History] Carvedilol [Coreg] 25 mg PO BID 06/01/17 [History] Levothyroxine [Synthroid] 50 mcg PO DAILY 06/01/17 [History] Omeprazole 20 mg PO DAILY 06/01/17 [History] Sacubitril/Valsartan [Entresto 24 mg-26 mg Tablet] 1 tab PO BID 06/01/17 [ History] Simvastatin [Zocor] 40 mg PO DAILY 06/01/17 [History] Forms: ED Department Discharge Referrals: PCP,None [Primary Care Provider] - - Patient Data Vitals - Most Recent: Last Vital Signs Temp 98.8 F 06/04/17 12:00 Pulse 75 06/04/17 12:00 Resp 12 06/04/17 12:00 BP 126/78 06/04/17 12:00 Pulse Ox 94 L 06/04/17 12:00 Weight - Most Recent: 105.1 kg I&O - Last 24 hours: Intake & Output 06/04/17 06/04/17 06/04/17 06:59 14:59 22:59 Intake Total 400 Output Total 450 Balance -50 Lab Results - Last 24 hrs: Laboratory Results - last 24 hr 06/03/17 06/03/17 06/04/17 Range/Units 17:18 20:53 06:07 WBC (4.0-11.0) K/uL RBC (4.50-5.90) M/uL Hgb (13.0-17.0) g/dL Hct (38.0-50.0) % MCV (80.0-98.0) fL MCH (27.0-32.0) pg MCHC (31.0-37.0) g/dL RDW Std Deviation (28.0-62.0) fl RDW Coeff of An (11.0-15.0) % Plt Count (150-400) K/uL MPV (7.40-12.00) fL Neut % (Auto) (48.0-80.0) % Lymph % (Auto) (16.0-40.0) % [place] % (Auto) (0.0-15.0) % Eos % (Auto) (0.0-7.0) % Baso % (Auto) (0.0-1.5) % Neut # (Auto) (1.4-5.7) K/uL Lymph # (Auto) (0.6-2.4) K/uL [place] # (Auto) (0.0-0.8) K/uL Eos # (Auto) (0.0-0.7) K/uL Baso # (Auto) (0.0-0.1) K/uL Nucleated RBC % /100WBC Nucleated RBCs # K/uL Sodium (136-146) mmol/L Potassium (3.5-5.1) mmol/L Chloride (98-110) mmol/L Carbon Dioxide (21-31) mmol/L BUN (6.0-23.0) mg/dL Creatinine (0.6-1.5) mg/dL Est Cr Clr Drug Dosing mL/min Estimated GFR (MDRD) ml/min Glucose (60-110) mg/dL POC Glucose 81 121 H 91 (60-110) mg/dL Calcium (8.8-10.8) mg/dL Total Bilirubin (0.1-1.5) mg/dL AST (5-40) IU/L ALT (8-54) IU/L Alkaline Phosphatase (40-150) Total Protein (6.0-8.0) g/dL Albumin (3.5-5.0) g/dL Globulin (2.0-3.5) g/dL Albumin/Globulin Ratio (1.3-2.8) 06/04/17 06/04/17 06/04/17 Range/Units 06:24 06:24 11:46 WBC 9.50 (4.0-11.0) K/uL RBC 4.51 (4.50-5.90) M/uL Hgb 15.2 (13.0-17.0) g/dL Hct 44.2 (38.0-50.0) % MCV 98.0 (80.0-98.0) fL MCH 33.7 H (27.0-32.0) pg MCHC 34.4 (31.0-37.0) g/dL RDW Std Deviation 44.5 (28.0-62.0) fl RDW Coeff of An 13 (11.0-15.0) % Plt Count 169 (150-400) K/uL MPV 10.70 (7.40-12.00) fL Neut % (Auto) 58.4 (48.0-80.0) % Lymph % (Auto) 28.8 (16.0-40.0) % [place] % (Auto) 10.3 (0.0-15.0) % Eos % (Auto) 2.2 (0.0-7.0) % Baso % (Auto) 0.3 (0.0-1.5) % Neut # (Auto) 5.5 (1.4-5.7) K/uL Lymph # (Auto) 2.7 H (0.6-2.4) K/uL [place] # (Auto) 1.0 H (0.0-0.8) K/uL Eos # (Auto) 0.2 (0.0-0.7) K/uL Baso # (Auto) 0.0 (0.0-0.1) K/uL Nucleated RBC % 0.0 /100WBC Nucleated RBCs # 0 K/uL Sodium 138 (136-146) mmol/L Potassium 4.0 (3.5-5.1) mmol/L Chloride 106 (98-110) mmol/L Carbon Dioxide 24 (21-31) mmol/L BUN 14 (6.0-23.0) mg/dL Creatinine 1.2 (0.6-1.5) mg/dL Est Cr Clr Drug Dosing 68.74 mL/min Estimated GFR (MDRD) > 60.0 ml/min Glucose 98 (60-110) mg/dL POC Glucose 95 (60-110) mg/dL Calcium 8.9 (8.8-10.8) mg/dL Total Bilirubin 1.0 (0.1-1.5) mg/dL AST 25 (5-40) IU/L ALT 37 (8-54) IU/L Alkaline Phosphatase 64 (40-150) Total Protein 6.7 (6.0-8.0) g/dL Albumin 3.8 (3.5-5.0) g/dL Globulin 2.9 (2.0-3.5) g/dL Albumin/Globulin Ratio 1.3 (1.3-2.8) Med Orders - Current: Current Medications Acetaminophen (Tylenol) 650 mg PO Q4H PRN PRN Reason: Pain (Mild 1-3)/fever Last Admin: 06/02/17 21:30 Dose: 650 mg Amiodarone HCl (Cordarone) 200 mg PO DAILY [facility] Last Admin: 06/04/17 09:02 Dose: 200 mg Aspirin (Halfprin) 81 mg PO DAILY [facility] Last Admin: 06/04/17 09:02 Dose: 81 mg Carvedilol (Coreg) 25 mg PO BID [facility] Last Admin: 06/04/17 09:03 Dose: 25 mg Insulin Aspart (Novolog) 0 unit SUBCUT QIDACANDBED [facility] PRN Reason: Protocol Last Admin: 06/04/17 11:49 Dose: Not Given Levothyroxine Sodium (Synthroid) 50 mcg PO DAILY@0730 [facility] Last Admin: 06/04/17 06:47 Dose: 50 mcg Omeprazole (Omeprazole) 20 mg PO DAILY [facility] Last Admin: 06/04/17 09:02 Dose: 20 mg Oxycodone HCl (Oxycodone) 5 mg PO Q4H PRN PRN Reason: Pain (moderate 4-6) Simvastatin (Zocor) 40 mg PO DAILY [facility] Last Admin: 06/04/17 09:03 Dose: 40 mg Sodium Chloride (Saline Flush) 10 ml FLUSH ASDIRECTED PRN PRN Reason: Keep Vein Open Sodium Chloride (Saline Flush) 2.5 ml FLUSH ASDIRECTED PRN PRN Reason: Keep Vein Open Discontinued Medications Aspirin (Aspirin) 325 mg PO ONETIME ONE Stop: 06/01/17 07:51 Last Admin: 06/01/17 08:25 Dose: 325 mg Iopamidol (Isovue Multipack-370 (76%)) 85 ml IVPUSH ONETIME STA Stop: 06/02/17 12:01 Last Admin: 06/02/17 12:00 Dose: 85 ml *Q Meaningful Use (DIS) - VTE *Q VTE Criteria *Q: - Stroke *Q Stroke Criteria *Q: - AMI *Q AMI Criteria *Q:
[2017-06-04 17:42] VITALS: BP 128/72
--- NOTE | 2017-06-07 14:16 | ECHO ---
EXAM DATE: 06/02/17 PATIENT'S AGE: 56 The echocardiogram report can be seen in this patient's EMR (Electronic Medical Record) in the Reports section. The report has also been scanned into PACS. FUENTES
== END 2017-06-04 19:55 | disposition home or self-care (01) | DRG 45 ==
LOC: MW.ED 07:15 → MW.MS 08:35 → OBSVTOIN 06-02 15:20
PROVIDERS: ADMIT Internal Medicine; ATTEND Internal Medicine
DX: I63.9 Cerebral infarction, unspecified (principal); I50.20 Unspecified systolic (congestive) heart failure; I48.91 Unspecified atrial fibrillation; I42.9 Cardiomyopathy, unspecified; I10 Essential (primary) hypertension; G51.0 Bell's palsy; Z95.810 Presence of automatic (implantable) cardiac defibrillator; Z79.899 Other long term (current) drug therapy; Z79.82 Long term (current) use of aspirin
CPT/HCPCS: 36415; 70450; 70450-26; 70496; 70496-26; 70498; 70498-26; 71010; 71010-26; 80053; 80061; 81001; 82962; 83036; 84443; 84484; 85025; 85610; 92610-GN; 93005; 93306; 97161-GP; 99284; 99285-25; A9270-GY; G0378; Q9967